=== PATIENT | female | born 1990 | race Caucasian/White ===

== ENCOUNTER 2021-07-24 05:16 | Emergency (ER) | payer OTHER ==
[~2021-07-24] VITALS: Ht 160 cm; Wt 74.8 kg
[2021-07-24 06:01] LABS: URINE BILIRUBIN NEGATIVE (Negative); URINE BLOOD NEGATIVE (Negative); URINE CLARITY CLEAR; URINE COLOR YELLOW; URINE GLUCOSE-RANDOM NEGATIVE (Negative); URINE KETONES NEGATIVE (Negative); URINE LEUKOCYTES-REFLEX NEGATIVE (Negative); URINE NITRITE-REFLEX NEGATIVE (Negative); URINE PROTEIN NEGATIVE (Negative); URINE SPECIFIC GRAVITY 1.025 (1.005-1.030); URINE UROBILINOGEN 0.2 E.U./dl (0.2-1.0)
[2021-07-24 06:18] LABS: ABSOLUTE EOSINOPHILS 0.1 thou/uL (0.0-0.7); ABSOLUTE LYMPHOCYTES 1.4 thou/uL (0.8-5.3); ABSOLUTE MONOCYTES 0.3 thou/uL (0.0-1.2); ABSOLUTE NEUTROPHILS 4.4 thou/uL (1.6-8.1); BASOPHILS 0.5 %; EOSINOPHILS 1.5 %; HEMATOCRIT 39.3 % (37.0-47.0); HEMOGLOBIN 13.2 gm/dL (12.0-15.0); LYMPHOCYTES 22.2 %; MCHC 33.7 g/dL (28.0-37.0); MONOCYTES 4.2 %; MPV 8.6 fl. (7.2-11.1); NUCLEATED RBCS 0 /100WBC; PLATELET COUNT* 195 thou/uL (150-400); POLYS 71.6 %; RBC 4.27 mil/uL (4.20-5.00); RDW-CV 12.5 % (10.5-14.5); WBC 6.1 thou/uL (4.0-11.0)
[2021-07-24 06:25] LABS: CALCIUM 8.4 mg/dL (8.5-10.1); CREATININE 0.7 mg/dL (0.6-1.3)
[2021-07-24 06:30] LABS: ALBUMIN 3.7 g/dL (3.4-5.0); TOTAL BILIRUBIN 0.2 mg/dL (<0.1-1.0); TOTAL PROTEIN 6.8 g/dL (6.4-8.2)
[2021-07-24] MEDS ORDERED: ZOFRAN ODT4 MG DISSOLVE (07:56)
[2021-07-24] MEDS ORDERED: BENTYL 10 MG CA10 M1 PO (07:56)
[2021-07-24 08:04] VITALS: BP 117/62
== END 2021-07-24 08:05 | disposition home or self-care (01) ==
LOC: M.ERS 05:16
PROVIDERS: Personal Emergency Response Attendant
DX: R10.31 Right lower quadrant pain (principal); R11.0 Nausea; M54.50 Low back pain, unspecified; F17.210 Nicotine dependence, cigarettes, uncomplicated